=== PATIENT | male | born 1955 | race Caucasian/White ===

== ENCOUNTER 2022-02-06 15:02 | Outpatient (REF) | payer MEDICARE, SELFPAY ==
[2022-02-06 15:58] LABS: MANUAL DIFF FLAG NO
[2022-02-06 16:31] LABS: Basophils Absolute Auto 0.1 X10*3/uL (0.0-0.2); Basophils Percent Auto 0.7 % (0-2); Eosinophils Absolute Auto 0.4 X10*3/uL (0.0-0.4); Eosinophils Percent Auto 4.8 % (0-4); Hematocrit 43.4 % (42.0-52.0); Hemoglobin 14.2 g/dl (14.0-18.0); Imm Gran Abs Auto 0.05 X10*3/uL (0.00-0.03); Imm Gran Pct Auto 0.6 % (0.0-0.4); Lymphocytes Absolute Auto 1.4 X10*3/uL (1.2-4.9); Lymphocytes Percent Auto 15.7 % (20-40); Mean Corpuscular HGB Conc 32.7 g/dl (31.0-36.0); Mean Corpuscular Hemoglobin 29.6 pg (27.0-33.0); Mean Corpuscular Volume 90.4 fL (80.0-98.0); Mean Platelet Volume 10.8 fL (9.4-12.4); Monocytes Absolute Auto 0.9 X10*3/uL (0.1-1.2); Monocytes Percent Auto 9.7 % (2-11); Neutrophils Absolute Auto 6.1 x10*3/uL (2.0-8.3); Neutrophils Percent Auto 68.5 % (45-73); Platelet Count 282 X10*3/uL (160-400); Red Cell Distribution Width 14.1 % (11.0-16.0); White Blood Count 8.9 X10*3/uL (4.8-10.8)
== END 2022-02-06 15:03 | disposition home or self-care (01) ==
LOC: HO.LAB 15:02
PROVIDERS: PCP Internal Medicine; Visit Provider Internal Medicine Pulmonary Disease
DX: J45.909 Unspecified asthma, uncomplicated (principal); G47.33 Obstructive sleep apnea (adult) (pediatric); Z91.09 Other allergy status, other than to drugs and biological substances
CPT/HCPCS: 36415; 82785; 85025; 86003; 99202

== ENCOUNTER 2022-02-14 12:54 | Outpatient (REF) | payer MEDICARE, SELFPAY ==
--- NOTE | 2022-02-14 09:29 | PFT_ITS ---
FLOWS: FEV1 90% of predicted at 2.97 L. FVC 87% of predicted at 3.91 L. FEV1 to FVC ratio of 0.76. No bronchodilator response except in small to medium airways. LUNG VOLUMES: Total lung capacity 91% of predicted at 6.42 L. Residual volume 107% of predicted at 2.60 L. Slow vital capacity 83% of predicted at 3.81 L. Expiratory reserve volume 1% of predicted at 0.02 L. Diffusion capacity is normal. IMPRESSION: No obstructive or restrictive ventilatory defect. No bronchodilator response except in small to medium airways. Decreased expiratory reserve volume suggests extrathoracic restriction, likely secondary to abdominal obesity. Baldev Alvares MD AP/MODL / [id number]
== END 2022-02-14 12:55 | disposition home or self-care (01) ==
LOC: HO.RESP 12:54
PROVIDERS: PCP Internal Medicine; Visit Provider Internal Medicine Pulmonary Disease
DX: R06.00 Dyspnea, unspecified (principal); J45.909 Unspecified asthma, uncomplicated
CPT/HCPCS: 94060; 94727; 94729

== ENCOUNTER → 2022-02-28 14:50 | Outpatient (BNVA) | payer MEDICARE, SELFPAY | PROVIDERS: PCP Internal Medicine; Visit Provider Internal Medicine Pulmonary Disease | DX: J45.909 Unspecified asthma, uncomplicated (principal); Z91.09 Other allergy status, other than to drugs and biological substances | CPT/HCPCS: 99212 ==

== ENCOUNTER → 2022-06-07 15:44 | Outpatient (BNVA) | payer MEDICARE, SELFPAY | PROVIDERS: PCP Internal Medicine; Visit Provider Internal Medicine Pulmonary Disease | DX: Z91.09 Other allergy status, other than to drugs and biological substances (principal); J45.909 Unspecified asthma, uncomplicated | CPT/HCPCS: 99212 ==

== ENCOUNTER 2022-07-13 09:18 | Outpatient (REF) | payer MEDICARE, SELFPAY | END 2022-07-13 09:19 | disposition home or self-care (01) | LOC: HO.MDS 09:18 | PROVIDERS: Visit Provider Internal Medicine Pulmonary Disease | DX: J45.50 Severe persistent asthma, uncomplicated (principal) | CPT/HCPCS: 96372; J0517 ==

== ENCOUNTER 2022-08-10 12:22 | Outpatient (REF) | payer MEDICARE, SELFPAY | END 2022-08-10 12:23 | disposition home or self-care (01) | LOC: HO.MDS 12:22 | PROVIDERS: Visit Provider Internal Medicine Pulmonary Disease | DX: J45.50 Severe persistent asthma, uncomplicated (principal) | CPT/HCPCS: 96372; J0517 ==

== ENCOUNTER 2022-09-07 14:38 | Outpatient (REF) | payer MEDICARE, SELFPAY | END 2022-09-07 14:39 | disposition home or self-care (01) | LOC: HO.MDS 14:38 | PROVIDERS: Visit Provider Internal Medicine Pulmonary Disease | DX: J45.50 Severe persistent asthma, uncomplicated (principal) | CPT/HCPCS: 96372; J0517 ==

== ENCOUNTER → 2022-09-21 11:46 | Outpatient (BNVA) | payer MEDICARE, SELFPAY | PROVIDERS: PCP Internal Medicine; Visit Provider Internal Medicine Pulmonary Disease | DX: J45.909 Unspecified asthma, uncomplicated (principal); G47.33 Obstructive sleep apnea (adult) (pediatric); Z91.09 Other allergy status, other than to drugs and biological substances | CPT/HCPCS: 99212 ==

== ENCOUNTER 2022-11-02 07:51 | Outpatient (REF) | payer MEDICARE, SELFPAY | END 2022-11-02 07:52 | disposition home or self-care (01) | LOC: HO.MDS 07:51 | PROVIDERS: Visit Provider Internal Medicine Pulmonary Disease | DX: J45.50 Severe persistent asthma, uncomplicated (principal) | CPT/HCPCS: 96372 ==

== ENCOUNTER 2022-12-28 07:53 | Outpatient (REF) | payer MEDICARE, SELFPAY | END 2022-12-28 07:54 | disposition home or self-care (01) | LOC: HO.MDS 07:53 | PROVIDERS: Visit Provider Internal Medicine Pulmonary Disease | DX: J45.50 Severe persistent asthma, uncomplicated (principal) | CPT/HCPCS: 96372 ==

== ENCOUNTER → 2023-02-13 15:53 | Outpatient (REF) | payer MEDICARE, SELFPAY | LOC: HO.SL 15:53 | PROVIDERS: Visit Provider Internal Medicine Pulmonary Disease | DX: G47.33 Obstructive sleep apnea (adult) (pediatric) (principal) | CPT/HCPCS: 95806 ==

== ENCOUNTER 2023-02-22 07:49 | Outpatient (REF) | payer MEDICARE, SELFPAY | END 2023-02-22 07:50 | disposition home or self-care (01) | LOC: HO.MDS 07:49 | PROVIDERS: Visit Provider Internal Medicine Pulmonary Disease | DX: J45.50 Severe persistent asthma, uncomplicated (principal) | CPT/HCPCS: 96372 ==

== ENCOUNTER → 2023-02-26 14:13 | Outpatient (BNVA) | payer MEDICARE, SELFPAY | PROVIDERS: Visit Provider Internal Medicine Pulmonary Disease | DX: J45.909 Unspecified asthma, uncomplicated (principal); G47.33 Obstructive sleep apnea (adult) (pediatric); R06.09 Other forms of dyspnea | CPT/HCPCS: 99212 ==

== ENCOUNTER → 2023-03-15 08:03 | Outpatient (REF) | payer MEDICARE, SELFPAY ==
--- NOTE | 2023-03-15 08:06 | CA_ITS ---
Transthoracic Echocardiogram Patient (Last, First, Middle): Shaun Matute, Gender: Male Date of : 1955 Age: 68 Procedure Date: 03/15/2023 Procedure Type: Transthoracic Echocardiogram Location: OP Height: 177.8 cm Weight: 140.62 kg BSA: 2.51 m2 Heart Rate: bpm BP: 117 / 71 mmHg Stick Roller: TO Referring MD: Baldev Alvares MD Symptoms: R06.09 - Other forms of dyspnea Study Quality: Technically Difficult/Contrast ECG Rhythm: Sinus Conclusions: - The left ventricular systolic function is normal. The calculated ejection fraction is 60% by biplane method. - There is mild calcification of the aortic valve. - There is mild mitral annular calcification. - Mild pulmonary hypertension is present. - The inferior vena cava is mildly dilated and collapses greater than 50% with inspiration. Findings Procedure Information Contrast agent, definity, is being given per protocol without apparent complications. Left Ventricle Normal left ventricular cavity size. There is normal left ventricular wall thickness. The left ventricular systolic function is normal. The calculated ejection fraction is 60% by biplane method. There is no evidence of regional wall motion abnormalities. E/E prime ratio is between 8 and 15 consistent with indeterminate filling pressures. Evidence suggests grade I (mild) diastolic dysfunction. Right Ventricle Normal right ventricular cavity size and systolic function. Atria Both atria are normal in size. Aortic Valve There is a normal trileaflet aortic valve. There is mild calcification of the aortic valve. There is no aortic valve stenosis. There is no aortic valve regurgitation. Mitral Valve There is mild mitral annular calcification. There is mild mitral valve regurgitation. There is no mitral valve stenosis. Pulmonic Valve There is trace to mild pulmonic valve regurgitation. Tricuspid Valve Normal tricuspid valve structure. There is trace tricuspid valve regurgitation. Mild pulmonary hypertension is present. Great Vessels The asc aorta is normal in size. Venous The inferior vena cava is mildly dilated and collapses greater than 50% with inspiration. Pericardium/Pleural There is a trivial pericardial effusion. Prior Study Comparison No prior study available for comparison. Measurements 2D Linear Measurements IVSd: 1.02 0.6-0.9/0.6-1.0 cm LVIDd: 5.77 3.9-5.3/4.2-5.9 cm LVIDd Index: 2.30 2.4-3.2/2.2-3.1 cm/m2 LVIDs: 3.64 2.0-3.6 cm LVPWd: 0.99 0.7-1.1 cm LA Diam: 4.10 2.7-3.8/3.0-4.0 cm LAIDs Index: 1.63 1.5-2.3 cm/m2 LV Mass: 289.77 67-162/88-224 g LV Mass Index: 115.45 43-95/49-115 g/m2 LVOT Diam: 2.30 3.0+(-)1.3 cm 2D Systolic Function EF 4C: 60.40 >55% EF 2C: 57.50 >55% EF BiP: 60.10 >55% Mitral Valve MV VTI: 0.44 MV Pk Te: 0.99 MV Mn Te: 0.60 MV Pk Grad: 4.00 MV Mn Grad: 2.00 MV Pk E: 1.08 MV PK A: 1.01 MV Decel Time: 286.00 E/A: 1.10 E'Lateral: 7.18 E'Medial: 7.62 E/E' Med: 14.20 E/E' Lat: 15.00 PHT: 84.00 MVA PHT: 2.62 MVA Continuity: 2.36 Decel [place]: 3.76 Aortic Valve AoV Pk Te: 1.36 AoV Mn Te: 0.98 AoV VTI: 0.35 AoV Pk Grad: 7.00 Aov Mn Grad: 4.00 RAUDEL Cont.VTI: 3.03 LVOT LVOT Pk Te: 1.07 LVOT Mn Te: 0.74 LVOT VTI: 0.25 LVOT Pk Grad: 5.00 LVOT Mn Grad: 2.00 LVOT Diam: 2.30 LVOT Area: 4.15 Diastolic Function MV Pk E: 1.08 MV Pk A: 1.01 E/A: 1.10 E'Medial: 7.62 E/E' Med: 14.20 E' Laterial: 7.18 E/E' Lat: 15.00 Right Ventricle TAPSE (mm): 29.30 TVS' Te: 14.50 Tricuspid Valve TR Pk Te: 2.81 TR Pk Grad: 32.00 RA Press: 8.00 RVSP: 40.00 Great Vessels Aorta Sinus of Valsalva: 3.70 2.0-3.[address] Ridge: 3.01 1.7-3.4 cm Ao Asc: 3.70 2.1-3.4 cm Updated in Other Vendor System with Status of Final Cornelius Xiong MD electronically signed on 03/17/2023 12:33:55 PM with status of Final
== END ==
LOC: HO.CARD 08:03
PROVIDERS: Visit Provider Internal Medicine Pulmonary Disease
DX: R06.09 Other forms of dyspnea (principal)
CPT/HCPCS: 93306; Q9957

== ENCOUNTER → 2023-04-05 10:41 | Outpatient (BNVA) | payer MEDICARE, SELFPAY | PROVIDERS: Visit Provider Internal Medicine Pulmonary Disease | DX: J45.909 Unspecified asthma, uncomplicated (principal); G47.33 Obstructive sleep apnea (adult) (pediatric); R06.09 Other forms of dyspnea; Z91.09 Other allergy status, other than to drugs and biological substances | CPT/HCPCS: 99212 ==

== ENCOUNTER 2023-04-19 07:42 | Outpatient (REF) | payer MEDICARE, SELFPAY | END 2023-04-19 07:43 | disposition home or self-care (01) | LOC: HO.MDS 07:42 | PROVIDERS: Visit Provider Internal Medicine Pulmonary Disease | DX: J45.50 Severe persistent asthma, uncomplicated (principal) | CPT/HCPCS: 96372 ==

== ENCOUNTER 2023-06-14 07:49 | Outpatient (REF) | payer MEDICARE, SELFPAY | END 2023-06-14 07:50 | disposition home or self-care (01) | LOC: HO.MDS 07:49 | PROVIDERS: Visit Provider Internal Medicine Pulmonary Disease | DX: J45.50 Severe persistent asthma, uncomplicated (principal) | CPT/HCPCS: 96372; J0517 ==

== ENCOUNTER 2023-08-09 08:06 | Outpatient (REF) | payer MEDICARE, SELFPAY | END 2023-08-09 08:07 | disposition home or self-care (01) | LOC: HO.MDS 08:06 | PROVIDERS: Visit Provider Internal Medicine Pulmonary Disease | DX: J45.50 Severe persistent asthma, uncomplicated (principal) | CPT/HCPCS: 96372 ==

== ENCOUNTER 2023-10-04 07:45 | Outpatient (REF) | payer MEDICARE, SELFPAY | END 2023-10-04 07:46 | disposition home or self-care (01) | LOC: HO.MDS 07:45 | PROVIDERS: Visit Provider Internal Medicine Pulmonary Disease | DX: J45.50 Severe persistent asthma, uncomplicated (principal) | CPT/HCPCS: 96372 ==

== ENCOUNTER 2023-10-23 14:07 | Outpatient (AMB) | payer MEDICARE, SELFPAY ==
--- NOTE | 2023-10-23 14:09 | MHC.OFFVIS ---
Intake Vital Signs 10/23/23 14:10 Height 5 ft 10 in Weight 328 lb 7.82 oz BMI 47.1 BP 128/67 Blood Pressure Location Rt brachial Position Sitting Pulse Oximetry (%) 97 Oxygen Delivery Method Room Air Intake Visit Reasons: Cough Allergies cholecalciferol (vitamin D3) Allergy (Unknown, Verified 10/23/23 14:11) Unknown HPI Cough HPI Details 68-year-old gentleman, nonsmoker, with underlying history and TONI on CPAP, previously seen at [facility], now followed for? moderate to severe persistent cough variant asthma.??He continues on regimen of Fasenra, Symbicort, albuterol MDI with reasonable baseline control.? Patient did receive his new CPAP machine and has been using it with good control of his underlying sleep apnea symptoms. Patient did try Bumex, however he was not able to tolerated. And at this time his not using any diuretic. He states that his edema has not changed. [facility] Social History (Updated 10/23/23 @ 14:12 by Shruthi Smith [facility]) Patient Tobacco Use Status: Never used Tobacco Review of Systems Const Denies daytime sleepiness, Denies excessive sweating, Denies fatigue, Denies fever(s), Denies lethargy, Denies malaise, Denies night sweats, Denies snoring and Denies weight loss Eyes Denies blurry vision and Denies itchy eyes ENT Denies nasal congestion, Denies post nasal drip, Denies sinus pain, Denies sinus pressure and Denies other ( Thrush) Card Denies chest pain, Reports pedal edema, Denies dyspnea, Denies orthopnea and Denies paroxysmal nocturnal dyspnea Resp Denies cough, Denies hemoptysis, Denies excessive phlegm production, Denies dyspnea, Denies snoring and Denies wheezing GI Denies abdominal pain and Denies heartburn Musc Denies myalgias, Denies arthralgias and Denies joint swelling Skin/Breast Denies rash Neuro Denies memory loss and Denies seizure-like activity Psych Denies abnormal sleep pattern, Denies anxiety and Denies memory loss Endo Denies excessive sweating, Denies fatigue and Denies heat intolerance Torrey/Lymph Denies easy bruising Aller/Immun Denies itchy eyes, Denies seasonal rhinorrhea and Denies wheezing Physical Exam Vital Signs: Last Vital Signs BP 128/67 10/23/23 14:10 Pulse Ox 97 10/23/23 14:10 Oxygen Delivery Method Room Air 10/23/23 14:10 BMI result Body Mass Index 47.1 Const General: no acute distress and alert Nutritional Appearance: obese Orientation/consciousness: Other orientation findings ( oriented) HEENT Head: Yes atraumatic Eyes General: appearance normal, both eyes and all related structures Sclerae: sclerae normal EOM: EOMs intact bilaterally Neck Neck: Yes supple Lymphatic: no lymphadenopathy noted Resp Effort & Inspection: normal respiratory effort and no use of accessory muscles Auscultation: clear to auscultation bilaterally Cardio Rate: regular rate Rhythm: regular rhythm Heart sounds: no gallops, no murmurs and no rubs Skin General skin exam: other ( warm) Extrem General: No clubbing, No cyanosis and Yes edema (3+ bilateral) Assessment & Plan Assessment & Plan (1) Asthma: Code(s): J45.909 - Unspecified asthma, uncomplicated Plan: Well controlled on Fasenra, Symbicort, and albuterol MDI. Continue current regimen. (2) TONI (obstructive sleep apnea): Code(s): G47.33 - Obstructive sleep apnea (adult) (pediatric) Plan: Well controlled on CPAP therapy. Continue CPAP therapy. (3) Environmental allergies: Code(s): Z91.09 - Other allergy status, other than to drugs and biological substances Plan: Well controlled on Fasenra. Continue current regimen. Coding Level of Care Code Est Pt Level 4 (58558) Diagnoses Asthma J45.909 TONI (obstructive sleep apnea) G47.33 Environmental allergies Z91.09
[2023-10-23 14:10] VITALS: BP 128/67; O2SAT 97; BMI 47.1
== END 2023-10-23 14:27 | disposition home or self-care (01) ==
PROVIDERS: Visit Provider Internal Medicine Pulmonary Disease
DX: J45.909 Unspecified asthma, uncomplicated (principal); G47.33 Obstructive sleep apnea (adult) (pediatric); Z91.09 Other allergy status, other than to drugs and biological substances
CPT/HCPCS: 99214

== ENCOUNTER → 2023-10-23 14:07 | Outpatient (BNVA) | payer MEDICARE, SELFPAY | PROVIDERS: Visit Provider Internal Medicine Pulmonary Disease | DX: G47.33 Obstructive sleep apnea (adult) (pediatric) (principal); Z91.09 Other allergy status, other than to drugs and biological substances | CPT/HCPCS: 99212 ==

== ENCOUNTER 2023-11-29 08:04 | Outpatient (REF) | payer MEDICARE, SELFPAY | END 2023-11-29 08:05 | disposition home or self-care (01) | LOC: HO.MDS 08:04 | PROVIDERS: Visit Provider Internal Medicine Pulmonary Disease | DX: J45.50 Severe persistent asthma, uncomplicated (principal) | CPT/HCPCS: 96372 ==

== ENCOUNTER 2024-01-24 08:07 | Outpatient (REF) | payer MEDICARE, SELFPAY ==
[2024-01-24 08:10] VITALS: BP 139/68; PULSE 64; RESP 20; TEMP 36.7; O2SAT 97; BMI 43.0
== END 2024-01-24 08:08 | disposition home or self-care (01) ==
LOC: HO.MDS 08:07
PROVIDERS: Visit Provider Internal Medicine Pulmonary Disease
DX: J45.50 Severe persistent asthma, uncomplicated (principal)
CPT/HCPCS: 96372

== ENCOUNTER 2024-03-30 13:27 | Outpatient (AMB) | payer MEDICARE, SELFPAY ==
--- NOTE | 2024-03-30 13:30 | MHC.OFFVIS ---
Vital Signs 03/30/24 13:31 Height 5 ft 10 in Weight 320 lb 12.361 oz BMI 46.0 BP 126/84 Blood Pressure Location Lt brachial Position Sitting Pulse 60 Pulse Source Pulse Oximeter Pulse Oximetry (%) 95 Oxygen Delivery Method Room Air Intake Visit Reasons: ER Follow Up Allergies cholecalciferol (vitamin D3) Allergy (Unknown, Verified 03/30/24 13:36) Unknown HPI HPI ER Follow Up: Details: Shaun is a pleasant 68-year-old male, nonsmoker, with underlying history and TONI on CPAP, with moderate to severe persistent cough variant asthma.? At baseline he is moderately controlled on Fasenra, Symbicort, albuterol MDI. He is followed by Dr. Alvares and presents today for ER follow up. He reported 5-6 days of worsening dyspnea on exertion and nonproductive cough, son with similar symptoms. EKG without acute findings, CXR unremarkable, Respiratory panel negative, BNP WNL, serial Troponins negative. He was treated with IV fluids, solumedrol, magnesium and duoneb with improvement in symptoms, ultimately discharged on prednisone 40 mg x 4 days and benzonatate. He has two days left of prednisone and continues with significant wheezing as well as nonproductive cough. He denies any changes to baseline dyspnea. He has been monitoring his oxygen saturation, never below 92-93%. He has not been using albuterol neb/MDI. [facility] Social History Patient Tobacco Use Status: Never used Tobacco Review of Systems Const Denies chills, Denies excessive sweating, Denies fever(s), Denies headache(s) and Denies night sweats Eyes Denies dry eyes, Denies irritation and Denies itchy eyes ENT Reports Normal hearing present, Denies headache(s), Denies nasal congestion, Denies nasal discharge, Denies post nasal drip and Denies sore throat Card Denies chest pain, Denies chest pain at rest, Denies chest pain with activity, Denies claudication, Denies leg edema, Reports dyspnea on exertion, Denies orthopnea and Denies paroxysmal nocturnal dyspnea Resp Denies chest congestion, Reports cough, Denies excessive phlegm production, Denies pain on inspiration, Denies pain with cough, Reports dyspnea on exertion, Denies stridor and Reports wheezing Musc Denies myalgias Neuro Reports Normal hearing present and Denies headache(s) Endo Denies excessive sweating Torrey/Lymph Denies lymphadenopathy Aller/Immun Denies itchy eyes, Denies seasonal rhinorrhea and Reports wheezing Physical Exam Vital Signs: Last Vital Signs Pulse 60 03/30/24 13:31 BP 126/84 03/30/24 13:31 Pulse Ox 95 03/30/24 13:31 Oxygen Delivery Method Room Air 03/30/24 13:31 BMI result Body Mass Index 46.0 Const General: cooperative, healthy appearing, comfortable, no acute distress, well developed and alert Nutritional Appearance: obese Orientation/consciousness: patient oriented x3 Limitations: no limitations HEENT Head: Yes normal to inspection, Yes normocephalic and Yes atraumatic Ears: hearing grossly normal bilaterally and external ears normal Eyes General: appearance normal, both eyes and all related structures Eyelids: Yes eyelids normal Sclerae: sclerae normal EOM: EOMs intact bilaterally Neck Neck: Yes normal visual inspection and Yes no lymphadenopathy Lymphatic: no lymphadenopathy noted Chest Chest palpation & inspection: normal inspection of the chest Resp Other: pt with audible wheezes and moderate wheezing throughout, minimally improved after duoneb Effort & Inspection: normal respiratory effort, able to speak in complete sentences, audible wheezes, Actively coughing Quality: wet, no stridor, not tachypneic, no tripod positioning and no use of accessory muscles Auscultation: wheezes Cardio Jugular venous distension: no JVD Rate: regular rate Rhythm: regular rhythm Skin Other: warm, dry General skin exam: no rashes or lesions noted Neuro General: patient oriented x3 Cranial nerves: Yes Normal hearing present Cognition (Neuro): normal cognition Gait exam (Neuro): Normal gait present Extrem General: Yes normal to inspection, Yes capillary refill normal, Yes no clubbing, cyanosis or edema and Yes no pedal edema Psych Appearance: grossly normal and well kempt Speech and movement: Normal speech and movement present and Clear speech present Affect: normal affect Attitude: cooperative Thought process: Normal thought process present Thought content: Normal thought content present Insight: Good insight present (Psych) Judgement: Good judgement present (Psych) Office Procedures Nebulizer Treatment Nebulizer Treatment 24489-[id number]/MDI RX initial, or Nebulizer Subsequent Treatment Office Meds ipratropium 0.5 mg-albuterol 3 mg (2.5 mg base)/3 mL nebulization soln Performing Provider: Lay Augustine NP Performing Location: [facility] Administered by: Myranda Mcclellan LPN on 03/30/24 14:22 Dose Route Admin Location Dispensed Lot Number Expiration Date NDC Director Of Sales And Marketing 3 mL inhalation 3 mL [id number] 09/24/25 29138-111-23 [employer] Assessment & Plan Assessment & Plan (1) Asthma: Code(s): J45.909 - Unspecified asthma, uncomplicated Category: Medical (2) TONI (obstructive sleep apnea): Code(s): G47.33 - Obstructive sleep apnea (adult) (pediatric) Category: Medical (3) Environmental allergies: Code(s): Z91.09 - Other allergy status, other than to drugs and biological substances Category: Medical Plan Will treat bronchitic symptoms with a zpak and prednisone. Encouraged patient to use nebulizer BID and increase symbicort to two inhalations twice daily. Nebulizer given in office for home use and patient has albuterol for nebulizer at home. Patient has close follow up already scheduled with Dr. Alvares. He is aware if symptoms do not improve to call or if worsen to seek emergent care. All questions were answered and patient is in agreement of plan. Orders: Orders AMB Nebulizer Treatment Today J45.909 - Unspecified asthma, uncomplicated, R06.09 - Other forms of dyspnea Medications: New prednisone see taper instructions Take 4 pills daily for 5 days, then go down by 1 pill every 5 days; 20 days 50 tabs 0RF 10 mg PO DIRECTED 50 tabs 0RF azithromycin For 250 mg dose pack: take 500 mg today (day 1), then 250 mg for 4 days (days 2-5) PO 6 tabs 0RF Coding Level of Care Code Est Pt Level 4 (38322) Diagnoses Asthma J45.909 TONI (obstructive sleep apnea) G47.33 Environmental allergies Z91.09 CPT Codes Nebulizer Treatment - Nebulizer Treatment, initial or subsequent: [id number] RX initial, or Nebulizer Subsequent Treatment ([id number])
[2024-03-30 13:31] VITALS: BP 126/84; PULSE 60; O2SAT 95; BMI 46.0
== END 2024-03-30 14:35 | disposition home or self-care (01) ==
PROVIDERS: Visit Provider Nurse Practitioner Family
DX: J45.909 Unspecified asthma, uncomplicated (principal); G47.33 Obstructive sleep apnea (adult) (pediatric); Z91.09 Other allergy status, other than to drugs and biological substances; R06.09 Other forms of dyspnea
CPT/HCPCS: 99214

== ENCOUNTER → 2024-03-30 13:27 | Outpatient (BNVA) | payer MEDICARE, SELFPAY | PROVIDERS: Visit Provider Nurse Practitioner Family | DX: J45.909 Unspecified asthma, uncomplicated (principal); G47.33 Obstructive sleep apnea (adult) (pediatric); Z91.09 Other allergy status, other than to drugs and biological substances | CPT/HCPCS: 94640; 99212 ==

== ENCOUNTER 2024-04-10 09:26 | Outpatient (AMB) | payer MEDICARE, SELFPAY ==
[2024-04-10 09:29] VITALS: BP 122/72; PULSE 68; O2SAT 92; BMI 44.5
--- NOTE | 2024-04-10 09:29 | MHC.OFFVIS ---
Vital Signs 04/10/24 09:29 Height 5 ft 10 in Weight 310 lb BMI 44.5 BP 122/72 Blood Pressure Location Rt brachial Position Sitting Pulse 68 Pulse Source Doppler Pulse Oximetry (%) 92 Oxygen Delivery Method Room Air Intake Visit Reasons: Cough Allergies cholecalciferol (vitamin D3) Allergy (Unknown, Verified 04/10/24 09:32) Unknown HPI HPI Cough: Details: 69-year-old gentleman, nonsmoker, with underlying history and TONI on CPAP, previously seen at [facility], now followed for? moderate to severe persistent cough variant asthma.??He continues on regimen of Fasenra, Symbicort, albuterol MDI with reasonable baseline control.? He also continues to use CPAP to control his underlying sleep apnea. Patient has been having an acute exacerbation for the last 2 weeks treated with a course of prednisone, now with significant improvement, though not completely at baseline. [facility] Social History Patient Tobacco Use Status: Never used Tobacco Review of Systems Const Denies daytime sleepiness, Denies excessive sweating, Denies fatigue, Denies fever(s), Denies lethargy, Denies malaise, Denies night sweats, Denies snoring and Denies weight loss Eyes Denies blurry vision and Denies itchy eyes ENT Denies nasal congestion, Denies post nasal drip, Denies sinus pain, Denies sinus pressure and Denies other ( Thrush) Card Denies chest pain, Denies pedal edema, Denies dyspnea, Denies orthopnea and Denies paroxysmal nocturnal dyspnea Resp Reports cough, Denies hemoptysis, Denies excessive phlegm production, Denies dyspnea, Denies snoring and Denies wheezing GI Denies abdominal pain and Denies heartburn Musc Denies myalgias, Denies arthralgias and Denies joint swelling Skin/Breast Denies rash Neuro Denies memory loss and Denies seizure-like activity Psych Denies abnormal sleep pattern, Denies anxiety and Denies memory loss Endo Denies excessive sweating, Denies fatigue and Denies heat intolerance Torrey/Lymph Denies easy bruising Aller/Immun Denies itchy eyes, Denies seasonal rhinorrhea and Denies wheezing Physical Exam Vital Signs: Last Vital Signs Pulse 68 04/10/24 09:29 BP 122/72 04/10/24 09:29 Pulse Ox 92 04/10/24 09:29 Oxygen Delivery Method Room Air 04/10/24 09:29 BMI result Body Mass Index 44.5 Const General: no acute distress and alert Nutritional Appearance: obese Orientation/consciousness: Other orientation findings ( oriented) HEENT Head: Yes atraumatic Eyes General: appearance normal, both eyes and all related structures Sclerae: sclerae normal EOM: EOMs intact bilaterally Neck Neck: Yes supple Lymphatic: no lymphadenopathy noted Resp Effort & Inspection: normal respiratory effort and no use of accessory muscles Auscultation: clear to auscultation bilaterally Cardio Rate: regular rate Rhythm: regular rhythm Heart sounds: no gallops, no murmurs and no rubs Skin General skin exam: other ( warm) Extrem General: No clubbing, No cyanosis and No edema Assessment & Plan Assessment & Plan (1) Asthma: Code(s): J45.909 - Unspecified asthma, uncomplicated Category: Medical Plan: Baseline controlled on Symbicort, albuterol MDI. Continue current regimen. Now with ongoing exacerbation that is improving current prednisone taper. Finish prednisone taper. Continue Fasenra. (2) Environmental allergies: Code(s): Z91.09 - Other allergy status, other than to drugs and biological substances Category: Medical Plan: Well controlled on Fasenra and Singulair. Continue current regimen. (3) TONI (obstructive sleep apnea): Code(s): G47.33 - Obstructive sleep apnea (adult) (pediatric) Category: Medical Plan: Well controlled on current CPAP therapy. Continue CPAP therapy. Medications: Refilled Symbicort 160-4.5 mcg/actuation (budesonide-formoterol) 2 puffs inhalation BID 1 ea 6RF 30 days NS Coding Level of Care Code Est Pt Level 4 (47862) Diagnoses Asthma J45.909 Environmental allergies Z91.09 TONI (obstructive sleep apnea) G47.33
== END 2024-04-10 09:52 | disposition home or self-care (01) ==
PROVIDERS: Visit Provider Internal Medicine Pulmonary Disease
DX: J45.909 Unspecified asthma, uncomplicated (principal); Z91.09 Other allergy status, other than to drugs and biological substances; G47.33 Obstructive sleep apnea (adult) (pediatric)
CPT/HCPCS: 99214

== ENCOUNTER → 2024-04-10 09:26 | Outpatient (BNVA) | payer MEDICARE, SELFPAY | PROVIDERS: Visit Provider Internal Medicine Pulmonary Disease | DX: J45.909 Unspecified asthma, uncomplicated (principal); G47.33 Obstructive sleep apnea (adult) (pediatric); Z91.09 Other allergy status, other than to drugs and biological substances | CPT/HCPCS: 99212 ==

== ENCOUNTER 2024-09-25 09:10 | Outpatient (AMB) | payer MEDICARE, SELFPAY ==
[2024-09-25 09:15] VITALS: BP 118/64; PULSE 64; O2SAT 95; BMI 44.2
--- NOTE | 2024-09-25 09:15 | MHC.OFFVIS ---
Vital Signs 09/25/24 09:15 Height 5 ft 10 in Weight 308 lb BMI 44.2 BP 118/64 Blood Pressure Location Lt brachial Position Sitting Pulse 64 Pulse Source Doppler Pulse Oximetry (%) 95 Oxygen Delivery Method Room Air Intake Visit Reasons: Cough Allergies cholecalciferol (vitamin D3) Allergy (Unknown, Verified 09/25/24 09:18) Unknown HPI HPI Cough: Details: 69-year-old gentleman, nonsmoker, with underlying history and TONI on CPAP, previously seen at [facility], now followed for? moderate to severe persistent cough variant asthma.??He continues on regimen of Fasenra, Symbicort, Singulair, albuterol MDI with reasonable baseline control.? He also continues to use CPAP to control his underlying sleep apnea. He denies recent exacerbations. [facility] Social History Patient Tobacco Use Status: Never used Tobacco Review of Systems Const Denies daytime sleepiness, Denies excessive sweating, Denies fatigue, Denies fever(s), Denies lethargy, Denies malaise, Denies night sweats, Denies snoring and Denies weight loss Eyes Denies blurry vision and Denies itchy eyes ENT Denies nasal congestion, Denies post nasal drip, Denies sinus pain, Denies sinus pressure and Denies other ( Thrush) Card Denies chest pain, Denies pedal edema, Denies dyspnea, Reports dyspnea on exertion (Climbing stairs), Denies orthopnea and Denies paroxysmal nocturnal dyspnea Resp Denies cough, Denies hemoptysis, Denies excessive phlegm production, Denies dyspnea, Reports dyspnea on exertion (Climbing stairs), Denies snoring and Denies wheezing GI Denies abdominal pain and Denies heartburn Musc Denies myalgias, Denies arthralgias and Denies joint swelling Skin/Breast Denies rash Neuro Denies memory loss and Denies seizure-like activity Psych Denies abnormal sleep pattern, Denies anxiety and Denies memory loss Endo Denies excessive sweating, Denies fatigue and Denies heat intolerance Torrey/Lymph Denies easy bruising Aller/Immun Denies itchy eyes, Denies seasonal rhinorrhea and Denies wheezing Physical Exam Vital Signs: Last Vital Signs Pulse 64 09/25/24 09:15 BP 118/64 09/25/24 09:15 Pulse Ox 95 09/25/24 09:15 Oxygen Delivery Method Room Air 09/25/24 09:15 BMI result Body Mass Index 44.2 Const General: no acute distress and alert Nutritional Appearance: obese Orientation/consciousness: Other orientation findings ( oriented) HEENT Head: Yes atraumatic Eyes General: appearance normal, both eyes and all related structures Sclerae: sclerae normal EOM: EOMs intact bilaterally Neck Neck: Yes supple Lymphatic: no lymphadenopathy noted Resp Effort & Inspection: normal respiratory effort and no use of accessory muscles Auscultation: clear to auscultation bilaterally Cardio Rate: regular rate Rhythm: regular rhythm Heart sounds: no gallops, no murmurs and no rubs Skin General skin exam: other ( warm) Extrem General: No clubbing, No cyanosis and No edema Assessment & Plan Assessment & Plan (1) Severe persistent asthma: Code(s): J45.50 - Severe persistent asthma, uncomplicated Category: Medical Plan: Controlled on current regimen of Fasenra, Symbicort, albuterol MDI, and albuterol nebs. Continue current regimen. (2) Environmental allergies: Code(s): Z91.09 - Other allergy status, other than to drugs and biological substances Category: Medical Plan: Controlled on Fasenra and Singulair. Continue current regimen. (3) TONI (obstructive sleep apnea): Code(s): G47.33 - Obstructive sleep apnea (adult) (pediatric) Category: Medical Plan: Well controlled on current CPAP therapy. Continue CPAP therapy. Medications: Refilled Symbicort 160-4.5 mcg/actuation (budesonide-formoterol) 2 puffs inhalation BID 30 days 1 ea 6RF NS Ventolin HFA 90 mcg/actuation (albuterol sulfate) 2 puffs inhalation Q4-6H 30 days PRN 1 ea 6RF shortness of breath or wheezing NS Coding Level of Care Code Est Pt Level 4 (38223) Diagnoses Severe persistent asthma J45.50 Environmental allergies Z91.09 TONI (obstructive sleep apnea) G47.33
== END 2024-09-25 09:34 | disposition home or self-care (01) ==
LOC: HO.HPS 09:10
PROVIDERS: Visit Provider Internal Medicine Pulmonary Disease
DX: J45.50 Severe persistent asthma, uncomplicated (principal); Z91.09 Other allergy status, other than to drugs and biological substances; G47.33 Obstructive sleep apnea (adult) (pediatric)
CPT/HCPCS: 99214

== ENCOUNTER → 2024-09-25 09:10 | Outpatient (BNVA) | payer MEDICARE, SELFPAY | PROVIDERS: Visit Provider Internal Medicine Pulmonary Disease | DX: J45.50 Severe persistent asthma, uncomplicated (principal); G47.33 Obstructive sleep apnea (adult) (pediatric); Z91.09 Other allergy status, other than to drugs and biological substances | CPT/HCPCS: 99212 ==

== ENCOUNTER 2025-01-29 09:06 | Outpatient (AMB) | payer MEDICARE, SELFPAY ==
[2025-01-29 09:17] VITALS: BP 128/60; PULSE 77; O2SAT 95; BMI 45.1
--- NOTE | 2025-01-29 09:17 | MHC.OFFVIS ---
Vital Signs 01/29/25 09:17 Height 5 ft 10 in Weight 314 lb 2.539 oz BMI 45.1 BP 128/60 Blood Pressure Location Rt brachial Position Sitting Pulse 77 Pulse Source Doppler Pulse Oximetry (%) 95 Oxygen Delivery Method Room Air Intake Visit Reasons: Cough Allergies cholecalciferol (vitamin D3) Allergy (Unknown, Verified 01/29/25 09:22) Unknown HPI HPI Cough: Details: 70-year-old gentleman, nonsmoker,followed for? moderate to severe persistent cough variant asthma, environmental allergies, and TONI on CPAP.??He continues on regimen of Fasenra, Symbicort, Singulair, albuterol MDI with reasonable baseline control.? He also continues to use CPAP to control his underlying sleep apnea. He denies recent exacerbations. [facility] Social History Patient Tobacco Use Status: Never used Tobacco Review of Systems Const Denies daytime sleepiness, Denies excessive sweating, Denies fatigue, Denies fever(s), Denies lethargy, Denies malaise, Denies night sweats, Denies snoring and Denies weight loss Eyes Denies blurry vision and Denies itchy eyes ENT Denies nasal congestion, Denies post nasal drip, Denies sinus pain, Denies sinus pressure and Denies other ( Thrush) Card Denies chest pain, Denies pedal edema, Denies dyspnea, Denies orthopnea and Denies paroxysmal nocturnal dyspnea Resp Denies cough, Denies hemoptysis, Denies excessive phlegm production, Denies dyspnea, Denies snoring and Denies wheezing GI Denies abdominal pain and Denies heartburn Musc Denies myalgias, Denies arthralgias and Denies joint swelling Skin/Breast Denies rash Neuro Denies memory loss and Denies seizure-like activity Psych Denies abnormal sleep pattern, Denies anxiety and Denies memory loss Endo Denies excessive sweating, Denies fatigue and Denies heat intolerance Torrey/Lymph Denies easy bruising Aller/Immun Denies itchy eyes, Denies seasonal rhinorrhea and Denies wheezing Physical Exam Vital Signs: Last Vital Signs Pulse 77 01/29/25 09:17 BP 128/60 01/29/25 09:17 Pulse Ox 95 01/29/25 09:17 Oxygen Delivery Method Room Air 01/29/25 09:17 BMI result Body Mass Index 45.1 Const General: no acute distress and alert Nutritional Appearance: obese Orientation/consciousness: Other orientation findings ( oriented) HEENT Head: Yes atraumatic Eyes General: appearance normal, both eyes and all related structures Sclerae: sclerae normal EOM: EOMs intact bilaterally Neck Neck: Yes supple Lymphatic: no lymphadenopathy noted Resp Effort & Inspection: normal respiratory effort and no use of accessory muscles Auscultation: clear to auscultation bilaterally Cardio Rate: regular rate Rhythm: regular rhythm Heart sounds: no gallops, no murmurs and no rubs Skin General skin exam: other ( warm) Extrem General: No clubbing, No cyanosis and No edema Assessment & Plan Assessment & Plan (1) Severe persistent asthma: Code(s): J45.50 - Severe persistent asthma, uncomplicated Category: Medical Plan: Well controlled on current regimen of Fasenra, Symbicort, and albuterol MDI/nebs. Continue current regimen. (2) Environmental allergies: Code(s): Z91.09 - Other allergy status, other than to drugs and biological substances Category: Medical Plan: Well controlled on Fasenra. Continue current regimen. (3) TONI (obstructive sleep apnea): Code(s): G47.33 - Obstructive sleep apnea (adult) (pediatric) Category: Medical Plan: Well controlled on current CPAP therapy. Continue CPAP therapy. Coding Level of Care Code Est Pt Level 4 (72693) Complex EM visit Add On G2211 Diagnoses Severe persistent asthma J45.50 Environmental allergies Z91.09 TONI (obstructive sleep apnea) G47.33
--- OUTSIDE RECORDS SUMMARY | 2025-01-29 09:47 | XMS_ITS | Continuity of Care Document ---
Author Organization [facility] Adult Address [address] [place] [address]- Care Team Providers Care Surveillance Inspector Name Role Phone Adeline Harper Primary Care Uli gomez Encounter [facility] Date(s): 12/15/24 - 01/14/[address] [address]- Encounter Type: Triage Allergies, Adverse Reactions, Alerts No Known Allergies Immunizations Given and Recorded Vaccine Date Status Refusal Reason influenza virus vaccine, inactivated 1 12/09/24 Gi sho influenza virus vaccine, inactivated 2 11/06/24 Gi sho influenza virus vaccine, inactivated 3 10/31/23 Gi sho influenza virus vaccine, inactivated 4 10/16/22 Gi sho influenza virus vaccine, inactivated 09/04/21 Messi rded influenza virus vaccine, inactivated 09/16/20 Messi rded influenza virus vaccine, inactivated 10/01/18 Give n influenza virus vaccine, inactivated 5 09/12/17 Gi sho influenza virus vaccine, inactivated 12/18/13 Give n influenza virus vaccine, inactivated 6 08/06/12 Gi sho SARS-CoV-2(COVID-19)mRNA-LNP vac([id number]) 11/16/24 Recorded SARS-CoV-2(COVID-19)mRNA-LNP vac([id number]) 09/24/23 Recorded SARS-CoV-2 mRNA (wbajsmr-dbya-drsdb) vax 06/09/22 Recorded SARS-CoV-2 (COVID-19) mRNA BNT-162b2 vac 09/29/21 Recorded SARS-CoV-2 (COVID-19) mRNA BNT-162b2 vac 01/18/21 Recorded SARS-CoV-2 (COVID-19) mRNA BNT-162b2 vac 12/28/20 Recorded Influenza Virus Vaccine (oldterm) 09/11/20 Recorde d Influenza Virus Vaccine (oldterm) 10/07/19 Recorde d pneumococcal 13-valent vaccine 10/07/19 Recorded Influenza Inactive (IM) (oldterm) 09/22/09 Given tetanus/diphtheria/pertussis, acel(Tdap) 05/26/08 Given 1Result Comment: [facility]# [id number] 2Result Comment: [facility]# [id number] 3Result Comment: Flu High [facility] [id number] 4Result Comment: [id number] 5Result Comment: [facility]#[id number] 6Admin Note: VIS:06/19/11 Problem List Condition Confirmation Course Effective Dates Status H ealth Status Informant ASTHMA, Moderate persistent Confirmed Active Chronic kidney disease, stage 3 Confirmed 08/06/12 Active CAD (coronary artery disease) 1 Confirmed 09/11/21 Active Diabetes Confirmed Active Hyperlipidemia Confirmed Active Hypertension Confirmed 06/29/21 Active Major depression in full remission Confirmed Active Obstructive sleep apnea syndrome, CPAP 8 cm Confirmed 1999 Active Congenitally solitary left kidney Confirmed Active Rosacea Confirmed Active Severe obesity Confirmed Active Urinary incontinence Confirmed Active 1Inferior hypokinesis and paradoxical decrease perfusion with rest in the inferior wall on regadenoson perfusion Social History Social History Type Response Smoking Status Never smoker entered on: 04/12/15 Sex Sex Representation Male (finding) Patient Care team information Care Team Personnel Name: Liz LEO, Adeline Thomason Position: [facility] PCO Associate Professional Member Role: PCP Address: [address] [place] [address]. [address] [place] [address]- Telecom: Care Team Related Persons Name: VANESA BRAVO Insurance Providers Guarantor name: MANDEEP BRAVO Health Plan Information #: 1 Payer: MEDICARE PART B OUTPT Member Number: NA Policy Number: NA Group Number: NA Health Plan Information #: 2 Payer: MEDEX Member Number: NA Policy Number: NA Group Number: NA
--- OUTSIDE RECORDS SUMMARY | 2025-01-29 09:48 | XMS_ITS | Continuity of Care Document ---
Author Organization [facility] Adult Address [address] [place] [address]- Care Team Providers Care Commercial Underwriter Name Role Phone Adeline Harper Primary Care P jason Encounter [facility] Date(s): 12/09/24 - 01/08/25 [facility] Adult [address] [place] [address]- Attending Physician: Luis Barry Encounter Type: Triage Allergies, Adverse Reactions, Alerts [...] vaccine, inactivated 6 08/06/12 Gi sho SARS-CoV-2(COVID-19)mRNA-LNP vac([id number]) 11/16/24 Recorded SARS-CoV-2(COVID-19)mRNA-LNP vac([id number]) 09/24/23 Recorded SARS-CoV-2 mRNA (hfejblc-vsgr-rgcyw) vax 06/09/22 Recorded SARS-CoV-2 (COVID-19) mRNA BNT-162b2 vac 09/29/21 Recorded SARS-CoV-2 (COVID-19) mRNA BNT-162b2 vac 01/18/21 Recorded SARS-CoV-2 (COVID-19) mRNA BNT-162b2 vac 12/28/20 Recorded Influenza Virus Vaccine (oldterm) 09/11/20 Recorde d Influenza Virus Vaccine (oldterm) 10/07/19 Recorde d pneumococcal 13-valent vaccine 10/07/19 Recorded Influenza Inactive (IM) (oldterm) 09/22/09 Given tetanus/diphtheria/pertussis, acel(Tdap) 05/26/08 Given 1Result Comment: [facility]# [id number] 2Result Comment: [facility]# [id number] 3Result Comment: Flu High [facility] [id number] 4Result Comment: [id number] 5Result Comment: [facility]#[id number] 6Admin Note: VIS:06/19/11 Problem List Condition Confirmation [...] in the inferior wall on regadenoson perfusion Procedures Procedure Date Related Diagnosis Body Site Status Colonoscopy 1 09/03/24 Completed Colonoscopy 2 05/30/16 Completed 1Repeat 5 years (2028) 2TA, 5 year repeat Social History Social History Type Response Smoking Status Never smoker entered on: 04/12/15 Sex Sex Representation Male (finding) EKG study * Event Display: EKG Authored Date: Laboratory * Event Display: Non-[facility] Pathology Lab Results Authored Date: * Event Display: Non BH Lab Results Authored Date: * Event Display: Non BH Lab Results Authored Date: * Event Display: Non BH Lab Results Authored Date: * Event Display: Non BH Lab Results Authored Date: Radiology * Event Display: CT Scan Abdomen, Non- BH Authored Date: * Event Display: CT Scan Abdomen, Non- BH Authored Date: Patient Care team information Care Team Personnel Name: Adeline Harper Position: [facility] PCO Associate Professional Member Role: PCP Address: [address] [place] [address]. [address] [place], [place] [address] Telecom: Care Team Related Persons Name: VANESA BRAVO Insurance Providers Guarantor name: MANDEEP BRAVO Health Plan Information #: 1 Payer: MEDICARE PART B OUTPT Member Number: NA Policy Number: NA Group Number: NA Health Plan Information #: 2 Payer: MEDEX Member Number: NA Policy Number: NA Group Number: NA
--- OUTSIDE RECORDS SUMMARY | 2025-01-29 09:48 | XMS_ITS | Encounter Summary ---
Author Organization [facility] Address [address] [place] [address] Care Team Providers Care Repair Operator Name Role Phone Unavailable Primary Care Provider Unavailabl e Encounter Details Date Type Department Care Team (Latest Contact Info) Description 12/21/2020 Lab Requisition [facility] COVID Drive Through [address] [place] [address] [address] [place] [address] Erwin Sarmiento MD [address] [place] [address] Encounter for laboratory testing for COVID-19 virus Social History Tobacco Use Types Packs/Day Years Used Date Smoking Tobacco: Never Assessed Sex and Gender Information Value Date Recorded Sex Assigned at Not on file Gender Identity Not on file Sexual Orientation Not on file documented as of this encounter Plan of Treatment Not on file documented as of this encounter Procedures Procedure Name Priority Date/Time Associated Diagnosis Comments COVID-19 (SARS-COV-2) - [facility] Routine 12/21/2020 2:54 PM EST Encounter for laboratory testing for COVID-19 virus [ICD-10-CM] documented in this encounter Results * COVID-19 (SARS-COV-2) ([facility]) (12/21/2020 2:54 PM EST) COVID-19 RT-PCR NOT-DETEC MARY Not-Detec mary 12/22/2020 3:06 PM EST [facility] - [place] Comment:Interpretation: The viral RNA was not detected, making the COVID-19 diagnosis less likely. Clinical correlation is highly recommended.Final report signed by Danis Pacheco, Ph.D., Laboratory DirectorTests performed at [facility], [employer] Microbiology Nasopharyngeal swab / Unknown 12/21/2020 2:54 PM EST 12/21/2020 2:54 PM EST Narrative JACQUELINE GILMAN - 12/22/2020 3:06 PM EST Performed by [facility], [employer] [address] [place] [address], CLIA# [id number] and [place] License# [id number] Erwin Sarmiento MD MICROBIOLOGY - GENER AL ORDERABLES Performing Organization Address City/State/[facility] Co de Phone Number JACQUELINE GILMAN documented in this encounter Visit Diagnoses Diagnosis Encounter for laboratory testing for COVID-19 virus documented in this encounter
--- OUTSIDE RECORDS SUMMARY | 2025-01-29 09:48 | XMS_ITS | Clinical Summary ---
Author Organization [facility] Address [address] [place] [address] Care Team Providers Care Orchard Hand Name Role Phone Unavailable Primary Care Provider Unavailabl e Social History Tobacco Use Types Packs/Day Years Used Date Smoking Tobacco: Never Assessed Sex and Gender Information Value Date Recorded Sex Assigned at Not on file Gender Identity Not on file Sexual Orientation Not on file Plan of Treatment Health Maintenance Due Date Last Done Comments Hepatitis C Virus Screening 1955 DTaP/Tdap/Td Vaccines (1 - Tdap) 1972 Pneumococcal Vaccines 50+ (1 of 1 - PCV) 2003 Zoster (Shingles) Vaccine (1 of 2) 2003 COVID-19 Vaccine ( - 2023-2 5 season) 2024 RSV Vaccine 60 years and old er and Patients (1 - 1-dose 75+ series) 2028 Hepatitis B Vaccines Aged Out No long er eligible based on patient's age to complete this topic
--- OUTSIDE RECORDS SUMMARY | 2025-01-29 09:48 | XMS_ITS | Clinical Summary ---
Author Organization [facility] Address [address] [place] [address] Phone Care Team Providers Care Radar Engineer Name Role Phone Atilio Ulloa MD Primary Care Provider [phone] Allergies Active Allergy Reactions Criticality Noted Date Comments Cholecalciferol 05/31/2010 Medications amLODIPine-kassandra zepril (LOTREL 5-10) 5-10 MG per capsule Take 1 capsule by mouth 1 (one) time each day Active aspirin (ST BALJIT) 81 MG EC tablet Take 81 mg by mouth 1 (one) time each day Active atorvastatin (LIPITOR) 40 MG tablet Take 40 mg by mouth 1 (one) time each day Active Multiple Vitamins-Minera ls (CENTRUM SILVER PO) Take by mouth 1 (one) time each day Active fluticasone (FLONASE) 50 MCG/ACT nasal spray Administer 1 spray into each nostril 1 (one) time each day Active FLUoxetine (PROzac) 20 MG capsule Take 20 mg by mouth 1 (one) time each day Active metoprolol succinate XL (TOPROL XL) 25 MG 24 hr tablet Take 25 mg by mouth 1 (one) time each day Do not crush or chew. Active montelukast (SINGULAIR) 10 MG tablet Take 10 mg by mouth every night Active Albuterol Sulfate 108 (90 Base) MCG/ACT aerosol powder Take by nebulization every 6 (six) hours if needed for wheezing Active budesonide-form oterol (SYMBICORT) 160-4.5 MCG/ACT inhaler Inhale 2 puffs 2 (two) times a day Rinse mouth with water after use to reduce aftertaste and incidence of candidiasis. Do not swallow. 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/14/2023 Hypertensive chronic kidney disease stage 3 02/24 Stage 3 chronic kidney disease 03/13/2023 Obstructive sleep apnea syndrome 07/25/2018 Resolved Problems Problem Noted Date Diagnosed Date Resolved Date Allergic rhinitis 08/06/2018 03/13/2023 Uncomplicated moderate persistent asthma 07/25/2018 03/13/2023 Asthma 07/18/2017 03/13/2023 Anxiety 05/31/2010 03/13/2023 Hyperlipidemia 05/31/2010 03/13/2023 Family History Medical History Relation Comments Diabetes Child Cancer Mother Lung cancer Diabetes Sister Relation Status Comments Child Alive Father Mother Sister Social History Tobacco Use Types Packs/Day Years Used Date Smoking Tobacco: Never Smokeless Tobacco: Never Tobacco Cessation:Counseling Given: No Alcohol Use Standard Drinks/Week Comments Yes 0 (1 standard drink = 0.6 oz pur e alcohol) Socially Sex and Gender Information Value Date Recorded Sex Assigned at Not on file Legal Sex Male 1:49 PM EDT Gender Identity Not on file Sexual Orientation Not on file Last Filed Vital Signs Vital Sign Reading Time Taken Comments Blood Pressure 130/72 09/19/2023 2:59 PM EDT Pulse 67 09/19/2023 2:59 PM EDT Temperature - - Respiratory Rate - - Oxygen Saturation - - Inhaled Oxygen Concentration - - Weight 136 kg (300 lb) 09/19/2023 2:59 PM EDT Height 177.8 cm (5' 10 ) 03/14/2023 2:59 PM EDT Body Mass Index 43.05 03/14/2023 2:59 PM EDT Plan of Treatment Health Maintenance Due Date Last Done Comments Colorectal Cancer Screening: Annual FOBT 2002 Colorectal Cancer Screening: Colonoscopy 2002 Colorectal Cancer Screening: Sigmoidoscopy 2002 Pneumococcal Vaccine: 65+ Years (2 of 2 - PPSV23 or PCV20) 12/02/2019 10/07/2019 Influenza Vaccine (#1) 2024 0, 10/07/2019, 09/22/2009 Hepatitis B Vaccine Aged Out No longe r eligible based on patient's age to complete this topic Insurance MEDICARE [facility] MEDICARE [facility] Care Teams Radar Engineer Relationship Specialty Start Date End Date Atilio Ulloa MD [address] [place] PCP - General Internal Medicine 03/14/23
--- OUTSIDE RECORDS SUMMARY | 2025-01-29 09:48 | XMS_ITS | Clinical Summary ---
Author Organization [email or web address] it Address [address] [place] [address] Care Team Providers Care Exploration Geologist Name Role Phone Atilio Ulloa MD Primary Care Provider [phone] Medical History Medical History Date Comments Allergic rhinitis 08/06/2018 DX:Allergic rh initis Social History Tobacco Use Types Packs/Day Years Used Date Smoking Tobacco: Never Smokeless Tobacco: Never Alcohol Use Standard Drinks/Week Comments Yes 0 (1 standard drink = 0.6 oz pur e alcohol) Sex and Gender Information Value Date Recorded Sex Assigned at Not on file Legal Sex Male 9:37 AM EST Gender Identity Not on file Sexual Orientation Not on file Obstetrics History Plan of Treatment Health Maintenance Due Date Last Done Comments DTaP,Tdap,and Td Vaccines (1 - Tdap) 1972 Pneumococcal Vaccine: 50+ Ye ars (1 of 2 - PCV) 1972 Zoster Vaccines (1 of 2) 2003 RSV Immunization Patients 60 + Years Old (1 - Risk 60-74 years 1-dose series) 2013 Abdominal Aortic Aneurysm (A AA) Screen 06/23/2024 Cholesterol Screening (Lipid Panel) 06/23/2024 Colorectal Cancer Screening: Colonoscopy 06/23/2024 Depression Screening 06/23/2024 Falls Risk Assessment 06/23/2024 Hepatitis C Screening 06/23/2024 Social Influencers of Health Screening 06/23/2024 COVID-19 Vaccine (1 - 2023-2 5 season) 2024 Influenza Vaccine (#1) 2024 HIB Vaccines Aged Out No longer eligi ble based on patient's age to complete this topic HPV Vaccines Aged Out No longer eligi ble based on patient's age to complete this topic Hepatitis A Vaccines Aged Out No long er eligible based on patient's age to complete this topic Hepatitis B Vaccines Aged Out No long er eligible based on patient's age to complete this topic IPV Vaccines Aged Out No longer eligi ble based on patient's age to complete this topic MMR Vaccines Aged Out No longer eligi ble based on patient's age to complete this topic Meningococcal ACWY Vaccine Aged Out N o longer eligible based on patient's age to complete this topic Meningococcal B Vacine Aged Out No lo nger eligible based on patient's age to complete this topic RSV Immunization Patients Un jay jay 20 months Aged Out No longer eligible b ased on patient's age to complete this topic Varicella Vaccines Aged Out No longer eligible based on patient's age to complete this topic Care Teams Exploration Geologist Relationship Specialty Start Date End Date Atilio Ulloa MD [address] [place] [phone] PCP - General Internal Medicine 07/23/18
--- OUTSIDE RECORDS SUMMARY | 2025-01-29 09:48 | XMS_ITS | Encounter Summary ---
Author Organization [facility] Address [address] [place] [address] Care Team Providers Care Misdraw Hand Name Role Phone Unavailable Primary Care Provider Unavailabl e Encounter Details Date Type Department Care Team (Latest Contact Info) Description 11/15/2020 Lab Requisition [facility] COVID Drive Through [address] [place] [address] [address] [place] [address] Atilio Mascorro PA-C [address] [place] [id number] Encounter for laboratory testing for COVID-19 virus [...] Date/Time Associated Diagnosis Comments COVID-19 (SARS-COV-2) - [facility] Routine 11/15/2020 5:44 PM EST Encounter for laboratory testing for COVID-19 virus [ICD-10-CM] documented in this encounter Results * COVID-19 (SARS-COV-2) ([facility]) (11/15/2020 5:44 PM EST) COVID-19 RT-PCR NOT-DETEC MARY Not-Detec mary 11/19/2020 3:[address] [facility] [place] Comment:Interpretation: The viral RNA was not detected, making the COVID-19 diagnosis less likely. Clinical correlation is highly recommended.Final report signed by Omaira Ga, Ph.D., Laboratory DirectorTests performed at [facility] Nasopharyngeal swab / Unknown 11/15/2020 5:44 PM EST 11/15/2020 5:44 PM EST Narrative JACQUELINE GILMAN - 11/19/2020 3:41 PM EST Performed by [facility], [employer] [address] [place] [address], CLIA# [id number] and [place] License# [id number] Atilio Mascorro PA-C MICROBIOLOGY - NERAL ORDERABLES JACQUELINE GILMAN documented in this encounter Visit Diagnoses Diagnosis Encounter for laboratory testing for COVID-19 virus documented in this encounter
--- OUTSIDE RECORDS SUMMARY | 2025-01-29 09:48 | XMS_ITS | Encounter Summary ---
Author Organization [facility] Address [address] [place] [address] Care Team Providers Care Commodity Specialist Name Role Phone Unavailable Primary Care Provider Unavailabl e Encounter Details Date Type Department Care Team (Latest Contact Info) Description 10/18/2020 Lab Requisition [facility] COVID Drive Through [address] [place] [address] [address] [place] [address] Atilio Mascorro PA-C [address] [place] [address] [phone] Encounter for laboratory testing for COVID-19 virus [...] Procedure Name Priority Date/Time Associated Diagnosis Comments (REPORT) SARS COV-2 RNA (COVID-19), QUAL Routine 10/18/2020 5:44 PM EST Encounter for laboratory testing for COVID-19 virus [ICD-10-CM] documented in this encounter Results * SARS CoV-2 RNA (COVID-19), Qual (10/18/2020 5:44 PM EST) Pathologist [facility] SARS CoV 2 RNA, Qual NOT DETECTED NOT DETECTED 10/22/2020 5:00 PM EST [facility] Comment: A Not Detected (negative) test result for this test means that SARS-CoV-2 RNA was not present in the specimen above the limit of detection. A negative result does not rule out the possibility of COVID-19 and should not be used as the sole basis for treatment or patient management decisions. If COVID-19 is still suspected, based on exposure history together with other clinical findings, re-testing should be considered in consultation with public health authorities. Laboratory test results should always be considered in the context of clinical observations and epidemiological data in making a final diagnosis and patient management decisions. REFERENCE RANGE: ??NOT DETECTED This patient specimen was tested using an FDA EUA pooling method. Negative results from pooled testing should not be treated as definitive. ??If the patient's clinical signs and symptoms are inconsistent with a negative result or results are necessary for patient management, then the patient should be considered for individual testing. Specimens with low viral loads may not be detected in sample pools due to the decreased sensitivity of pooled testing. Please review the Fact Sheets and FDA authorized labeling available for health care providers and patients using the following websites: https://www.[employer]/home/Covid-19/HCP/QuestLDTP/ fact-sheet https://www.[employer]/home/Covid-19/Patients/QuestLDTP/ fact-sheet.html This test has been authorized by the FDA under an Emergency Use Authorization (EUA) for use by authorized laboratories. Due to the current public health emergency, [facility] is receiving a high volume of samples from a wide variety of swabs and media for COVID-19 testing. In order to serve patients during this public health crisis, samples from appropriate clinical sources are being tested. Negative test results derived from specimens received in non-commercially manufactured viral collection and transport media, or in media and sample collection kits not yet authorized by FDA for COVID-19 testing should be cautiously evaluated and the patient potentially subjected to extra precautions such as additional clinical monitoring, including collection of an additional specimen. Methodology: ??Nucleic Acid Amplification Test (NAAT) includes RT-PCR or TMA ?? Additional information about COVID-19 can be found at the [facility] website: www.[employer]/Covid19. Microbiology Nasopharyngeal swab / Unknown 10/18/2020 5:44 PM EST 10/18/2020 5:44 PM EST Narrative [facility] - 10/22/2020 5:00 PM EST Performing Organization Information: ?Site ID: [id number] ?Name: [employer] ?Address: [address] [place] [address],[place] [address] ?Director: GHASSAN GARCIA MD [facility] License number [id number] Atilio Mascorro PA-C BODY FLUIDS AND S TOOLS ORDERABLES Performing Organization Address City/State/[facility] Co de Phone Number [facility] documented in this encounter Visit Diagnoses Diagnosis Encounter for laboratory testing for COVID-19 virus documented in this encounter
== END 2025-01-29 09:31 | disposition home or self-care (01) ==
PROVIDERS: PCP Internal Medicine; Visit Provider Internal Medicine Pulmonary Disease
DX: J45.50 Severe persistent asthma, uncomplicated (principal); Z91.09 Other allergy status, other than to drugs and biological substances; G47.33 Obstructive sleep apnea (adult) (pediatric)
CPT/HCPCS: 99214; G2211

== ENCOUNTER → 2025-01-29 09:06 | Outpatient (BNVA) | payer MEDICARE, SELFPAY | PROVIDERS: PCP Internal Medicine; Visit Provider Internal Medicine Pulmonary Disease | DX: G47.33 Obstructive sleep apnea (adult) (pediatric) (principal); J45.50 Severe persistent asthma, uncomplicated; Z91.09 Other allergy status, other than to drugs and biological substances; Z99.89 Dependence on other enabling machines and devices | CPT/HCPCS: 99212 ==

== ENCOUNTER 2025-06-28 15:20 | Outpatient (AMB) | payer MEDICARE, SELFPAY ==
--- NOTE | 2025-06-28 15:14 | A.OFFVIS_ITS ---
Vital Signs 06/28/25 15:24 Height 5 ft 10 in Weight 314 lb BMI 45.0 BP 109/58 L Blood Pressure Location Rt brachial Position Sitting Respiration 16 Pulse 67 Pulse Source Pulse Oximeter Pulse Oximetry (%) 98 Oxygen Delivery Method Room Air Intake Visit Reasons: Dry cough Youth Support Worker Required: No Allergies cholecalciferol (vitamin D3) Allergy (Unknown, Verified 06/28/25 15:27) Unknown HPI HPI Dry cough: Details: Shaun is a pleasant 70-year-old male, nonsmoker, with underlying asthma, TONI on CPAP, HTN, CKD and hyperlipidemia. At baseline he is moderately controlled on Fasenra, Symbicort, Singulair, albuterol MDI. He does note only using Symbicort QD and has not used albuterol MDI/neb. He is followed by Dr. Alvares and presents today for an acute visit, accompanied by his . He reports poorly controlled asthma over the last two months with more noticeable dyspnea on exertion as well as dry cough. He was treated about one month ago with azithromycin and prednisone for possible sinus infection and noted slight decrease in dyspnea and cough with use of prednisone. Denies chest congestion, fevers or chills. He is under the care of cardiology, last evaluated 10/2024 with last echo 2021, previously on lasix and has discontinued quite some time ago. He denies orthopnea however does report BLE edema. [facility] Social History Patient Tobacco Use Status: Never used Tobacco Review of Systems Const Denies chills, Denies excessive sweating, Denies fever(s), Denies headache(s) and Denies night sweats Eyes Denies dry eyes, Denies irritation and Denies itchy eyes ENT Reports Normal hearing present, Denies headache(s), Denies nasal congestion, Denies nasal discharge, Reports post nasal drip and Denies sore throat Card Denies chest pain, Denies chest pain at rest, Denies chest pain with activity, Denies claudication, Denies dyspnea, Reports dyspnea on exertion, Denies orthopnea and Denies paroxysmal nocturnal dyspnea Resp Denies chest congestion, Reports cough, Denies hemoptysis, Denies excessive phlegm production, Denies pain on inspiration, Denies pain with cough, Denies dyspnea, Reports dyspnea on exertion, Denies stridor and Reports wheezing Musc Denies myalgias Neuro Reports Normal hearing present and Denies headache(s) Endo Denies excessive sweating Torrey/Lymph Denies lymphadenopathy Aller/Immun Denies itchy eyes, Denies seasonal rhinorrhea and Reports wheezing Physical Exam Vital Signs: Last Vital Signs Pulse 67 06/28/25 15:24 Resp 16 06/28/25 15:24 BP 109/58 L 06/28/25 15:24 Pulse Ox 98 06/28/25 15:24 Oxygen Delivery Method Room Air 06/28/25 15:24 BMI result Body Mass Index 45.0 Const General: cooperative, healthy appearing, comfortable, no acute distress, well developed and alert Nutritional Appearance: obese Orientation/consciousness: patient oriented x3 Limitations: no limitations HEENT Head: Yes normal to inspection, Yes normocephalic and Yes atraumatic Ears: hearing grossly normal bilaterally and external ears normal Eyes General: appearance normal, both eyes and all related structures Eyelids: Yes eyelids normal Sclerae: sclerae normal EOM: EOMs intact bilaterally Neck Neck: Yes normal visual inspection and Yes no lymphadenopathy Lymphatic: no lymphadenopathy noted Chest Chest palpation & inspection: normal inspection of the chest Resp Other: diminished bases otherwise clear with good air movement Effort & Inspection: normal respiratory effort, able to speak in complete sentences, no audible wheezes, no cough, no stridor, not tachypneic, no tripod positioning and no use of accessory muscles Auscultation: diminished lung sounds Cardio Jugular venous distension: no JVD Rate: regular rate Rhythm: regular rhythm Skin Other: warm, dry General skin exam: no rashes or lesions noted Neuro General: patient oriented x3 Cranial nerves: Yes Normal hearing present Cognition (Neuro): normal cognition Gait exam (Neuro): Normal gait present Extrem Other: 1-2+ pitting BLE edema Psych Appearance: grossly normal and well kempt Speech and movement: Normal speech and movement present and Clear speech present Affect: normal affect Attitude: cooperative Thought process: Normal thought process present Thought content: Normal thought content present Insight: Good insight present (Psych) Judgement: Good judgement present (Psych) Assessment & Plan Assessment & Plan (1) Severe persistent asthma: Code(s): J45.50 - Severe persistent asthma, uncomplicated Category: Medical (2) Environmental allergies: Code(s): Z91.09 - Other allergy status, other than to drugs and biological substances Category: Medical Plan Shaun presents for an acute visit for worsening dyspnea and more persistent dry cough despite current regimen. Respiratory exam unremarkable. Patient questioning effectiveness of Fasenra however patient only uses Symbicort 160 mcg 2 inhalations in the AM, encouraged patient to use BID and use albuterol MDI/neb PRN. Will also send for CXR today. Encouraged patient to reach out to cardiology as there may be an underlying cardiac contribution, last echo 2021 with no significant findings however technically difficult study, notable BLE edema on exam today and patient previously on lasix. All questions were answered and patient is in agreement of plan. Will follow up for regularly scheduled appointment with Dr. Alvares in 6 weeks or sooner if needed. Orders: Orders XR chest 2V 06/28/25 R06.09 - Other forms of dyspnea Medications: New albuterol sulfate 2.5 mg (3 mL) inhalation Q4-6H PRN 180 mL 2RF shortness of breath or wheezing J45.909 - Unspecified asthma, uncomplicated Refilled Symbicort 160-4.5 mcg/actuation (budesonide-formoterol) 2 puffs PO BID 10.2 grams 6RF NS Ventolin HFA 90 mcg/actuation (albuterol sulfate) 2 puffs inhalation Q4-6H PRN 1 ea 6RF shortness of breath or wheezing 30 days NS Coding Level of Care Code Est Pt Level 4 (48331) Complex EM visit Add On G2211 Diagnoses Severe persistent asthma J45.50 Environmental allergies Z91.09
--- OUTSIDE RECORDS SUMMARY | 2025-06-28 15:22 | XMS_ITS | Encounter Summary ---
Author Organization [facility] Address [address] [place] [address] Care Team Providers Care Briquetter Operator Name Role Phone Unavailable Primary Care Provider Unavailabl e Encounter Details Date Type Department Care Team (Latest Contact Info) Description 11/15/2020 Lab Requisition [facility] COVID Drive Through [address] [place] [address] [address] [place] [address] Atilio Mascorro PA-C [address] [place] [address] [phone] Encounter for laboratory testing for COVID-19 virus Social History Tobacco Use Types Packs/Day Years Used Date Smoking Tobacco: Never Assessed Sex and Gender Information Value Date Recorded Sex Assigned at Not on file Legal Sex Male 5:42 PM EST Gender Identity Not on file Sexual Orientation Not on file documented as of this encounter Plan of Treatment Not on file documented as of this encounter Procedures Procedure Name Priority Date/Time Associated Diagnosis Comments COVID-19 (SARS-COV-2) - [facility] Routine 11/15/2020 5:44 PM EST Encounter for laboratory testing for COVID-19 virus [ICD-10-CM] documented in this encounter Results * COVID-19 (SARS-COV-2) (SEMA4) (11/15/2020 5:44 PM EST) COVID-19 RT-PCR NOT-DETEC MARY Not-Detec mary 11/19/2020 3:41 PM EST [facility] [place] Comment:Interpretation: The viral RNA was not detected, making the COVID-19 diagnosis less likely. Clinical correlation is highly recommended.Final report signed by Omaira Ga, Ph.D., Laboratory DirectorTests performed at [facility] [employer] Microbiology Nasopharyngeal swab / Unknown 11/15/2020 5:44 PM EST 11/15/2020 5:44 PM EST Narrative [facility] - 11/19/2020 3:41 PM EST Performed by [facility] [employer] [address] [place] [address], CLIA# [id number] and [place] License# [id number] us Atilio Mascorro PA-C MICROBIOLOGY - GENERAL OR DERABLES Final Result [facility] documented in this encounter Visit Diagnoses Diagnosis Encounter for laboratory testing for COVID-19 virus documented in this encounter
--- OUTSIDE RECORDS SUMMARY | 2025-06-28 15:22 | XMS_ITS | Clinical Summary ---
Author Organization [facility] Address [address] [place] [address] Phone Care Team Providers Care Ironing Machine Operator Name Role Phone Atilio Ulloa MD Primary Care Provider [phone] Allergies Active Allergy Reactions Criticality Noted Date [...] Colorectal Cancer Screening: Sigmoidoscopy 2002 Pneumococcal Vaccine: 50+ Years (2 of 2 - PPSV23, PCV20, or PCV21) 12/02/2019 10/07/2019 Influenza Vaccine (#1) 2025 0, 10/07/2019, 09/22/2009 Hepatitis B Vaccine Aged Out No longe r eligible based on patient's age to complete this topic Insurance Medicare [facility] Care Teams Ironing Machine Operator Relationship Specialty Start Date End Date Atilio Ulloa MD [address] [place] PCP - General Internal Medicine 03/14/23
--- OUTSIDE RECORDS SUMMARY | 2025-06-28 15:22 | XMS_ITS | Clinical Summary ---
Author Organization [facility] [facility] it Address [address] [place] [address] Care Team Providers Care Detective Chief Name Role Phone Atilio Ulloa MD Primary Care Provider [phone] Medical History Medical History Date Comments Allergic [...] Vaccines (1 of 2) 2003 RSV Immunization Adult Patie nts (1 - Risk 60-74 years 1-dose series) 2013 Abdominal Aortic Aneurysm (A AA) Screen 06/23/2024 Cholesterol Screening (Lipid Panel) 06/23/2024 Colorectal Cancer Screening: Colonoscopy 06/23/2024 Falls Risk Assessment 06/23/2024 Hepatitis C Screening 06/23/2024 Social Influencers of Health Screening 06/23/2024 COVID-19 Vaccine (1 - 2023-2 5 season) 2024 Depression Screening 11/25/2024 Influenza Vaccine (#1) 2025 HIB Vaccines Aged Out No longer eligi [...] age to complete this topic Meningococcal B Vaccine Aged Out No l onger eligible based on patient's age to complete this topic RSV Immunization Patients Un jay jay 20 months Aged Out No longer eligible b ased on patient's age to complete this topic Varicella Vaccines Aged Out No longer eligible based on patient's age to complete this topic Care Teams Detective Chief Relationship Specialty Start Date End Date Atilio Ulloa MD [address] [place] [address] PCP - General Internal Medicine 07/23/18
[2025-06-28 15:24] VITALS: BP 109/58; PULSE 67; RESP 16; O2SAT 98; BMI 45.0
== END 2025-06-28 16:06 | disposition home or self-care (01) ==
LOC: HO.HPS 15:21
PROVIDERS: PCP Internal Medicine; Visit Provider Nurse Practitioner Family
DX: J45.50 Severe persistent asthma, uncomplicated (principal); Z91.09 Other allergy status, other than to drugs and biological substances
CPT/HCPCS: 99214; G2211

== ENCOUNTER 2025-06-28 15:20 | Outpatient (REF) | payer MEDICARE, SELFPAY ==
--- NOTE | ~2025-06-28 | XR_ITS ---
EXAMINATION: XR CHEST CLINICAL INFORMATION: R06.09 - Other forms of dyspnea COMPARISON: None available. TECHNIQUE: 2 views of the chest were obtained. FINDINGS: No significant abnormality is noted involving the heart, lungs, mediastinum, bony thorax or soft tissues. Aorta is mildly tortuous. XR/XR chest 2V IMPRESSION: No acute disease. Electronically signed by: Bravo Allred MD 06/28/2025 05:35 PM EDT
== END 2025-06-28 15:21 | disposition home or self-care (01) ==
LOC: HO.XRAY 15:20
PROVIDERS: PCP Student in an Organized Health Care Education/Training Program; Visit Provider Nurse Practitioner Family
DX: J45.50 Severe persistent asthma, uncomplicated (principal); R06.09 Other forms of dyspnea; R05.3 Chronic cough; R60.0 Localized edema; Z79.51 Long term (current) use of inhaled steroids; Z91.09 Other allergy status, other than to drugs and biological substances; Z79.620 Long term (current) use of immunosuppressive biologic
CPT/HCPCS: 71046; 99212

== ENCOUNTER → 2025-06-28 16:17 | Outpatient (BNV) | payer MEDICARE, SELFPAY | PROVIDERS: PCP Student in an Organized Health Care Education/Training Program; Visit Provider Radiology Diagnostic Radiology | DX: R06.02 Shortness of breath (principal) | CPT/HCPCS: 71046 ==

== ENCOUNTER 2025-07-21 10:04 | Outpatient (AMB) | payer MEDICARE, SELFPAY ==
[2025-07-21 10:07] VITALS: BP 128/64; PULSE 64; O2SAT 96; BMI 43.3
--- NOTE | 2025-07-21 10:07 | A.OFFVIS_ITS ---
Vital Signs 07/21/25 10:07 Height 5 ft 10 in Weight 302 lb BMI 43.3 BP 128/64 Blood Pressure Location Rt brachial Position Sitting Pulse 64 Pulse Source Pulse Oximeter Pulse Oximetry (%) 96 Oxygen Delivery Method Room Air Intake Visit Reasons: cough Allergies cholecalciferol (vitamin D3) Allergy (Unknown, Verified 07/21/25 10:11) Unknown HPI HPI cough: Details: 70-year-old gentleman, nonsmoker,followed for? moderate to severe persistent cough variant asthma, environmental allergies, and TONI on CPAP.??He continues on regimen of Fasenra, Symbicort, Singulair, albuterol MDI with reasonable baseline control.? He also continues to use CPAP to control his underlying sleep apnea. He had recent exacerbation treated with a course of prednisone and antibiotic, now at baseline. Patient does state that Fasenra is not lasting full 8 weeks and he has a tapering effect for the last several weeks before the next dose. He is intentionally losing weight, now down 12 lb since last visit. [facility] Social History Patient Tobacco Use Status: Never used Tobacco Review of Systems Const Denies daytime sleepiness, Denies excessive sweating, Denies fatigue, Denies fever(s), Denies lethargy, Denies malaise, Denies night sweats, Denies snoring and Denies weight loss Eyes Denies blurry vision and Denies itchy eyes ENT Denies nasal congestion, Denies post nasal drip, Denies sinus pain, Denies sinus pressure and Denies other ( Thrush) Card Denies chest pain, Denies pedal edema, Denies dyspnea, Denies orthopnea and Denies paroxysmal nocturnal dyspnea Resp Denies cough, Denies hemoptysis, Denies excessive phlegm production, Denies dyspnea, Denies snoring and Denies wheezing GI Denies abdominal pain and Denies heartburn Musc Denies myalgias, Denies arthralgias and Denies joint swelling Skin/Breast Denies rash Neuro Denies memory loss and Denies seizure-like activity Psych Denies abnormal sleep pattern, Denies anxiety and Denies memory loss Endo Denies excessive sweating, Denies fatigue and Denies heat intolerance Torrey/Lymph Denies easy bruising Aller/Immun Denies itchy eyes, Denies seasonal rhinorrhea and Denies wheezing Physical Exam Vital Signs: Last Vital Signs Pulse 64 07/21/25 10:07 BP 128/64 07/21/25 10:07 Pulse Ox 96 07/21/25 10:07 Oxygen Delivery Method Room Air 07/21/25 10:07 BMI result Body Mass Index 43.3 Const General: no acute distress and alert Nutritional Appearance: obese Orientation/consciousness: Other orientation findings ( oriented) HEENT Head: Yes atraumatic Eyes General: appearance normal, both eyes and all related structures Sclerae: sclerae normal EOM: EOMs intact bilaterally Neck Neck: Yes supple Lymphatic: no lymphadenopathy noted Resp Effort & Inspection: normal respiratory effort and no use of accessory muscles Auscultation: clear to auscultation bilaterally Cardio Rate: regular rate Rhythm: regular rhythm Heart sounds: no gallops, no murmurs and no rubs Skin General skin exam: other ( warm) Extrem General: No clubbing, No cyanosis and No edema Assessment & Plan Assessment & Plan (1) Severe persistent asthma: Code(s): J45.50 - Severe persistent asthma, uncomplicated Category: Medical Plan: Overall reasonable baseline control on Fasenra, Symbicort, and albuterol MDI/nebs. Continue current regimen. (2) TONI (obstructive sleep apnea): Code(s): G47.33 - Obstructive sleep apnea (adult) (pediatric) Category: Medical Plan: Controlled on current CPAP therapy. Continue CPAP therapy. (3) Environmental allergies: Code(s): Z91.09 - Other allergy status, other than to drugs and biological substances Category: Medical Plan: Controlled on current regimen of Fasenra and Singulair. Continue current regimen. Coding Level of Care Code Est Pt Level 4 (22067) Complex EM visit Add On G2211 Diagnoses Severe persistent asthma J45.50 TONI (obstructive sleep apnea) G47.33 Environmental allergies Z91.09
--- OUTSIDE RECORDS SUMMARY | 2025-07-21 10:52 | XMS_ITS | Encounter Summary ---
Author Organization [facility] Address [address] [place] [address] Care Team Providers Care Scuba Dive Training Instructor Name Role Phone Unavailable Primary Care Provider Unavailabl e Encounter Details Date Type Department Care Team (Latest Contact Info) Description 10/18/2020 Lab Requisition [facility] COVID Drive Through [address] [place] [address] [address] [place] [address] Atilio Mascorro PA-C [address] [place] [address] [phone] Encounter for laboratory testing for COVID-19 virus [...] RNA (COVID-19), Qual (10/18/2020 5:44 PM EST) SARS CoV 2 RNA, Qual NOT DETECTED NOT DETECTED 10/22/2020 5:[address] [facility] Comment: A Not Detected (negative) test [...] diagnosis and patient management decisions. REFERENCE RANGE: NOT DETECTED This patient specimen was tested using an FDA EUA pooling method. Negative results from pooled testing should not be treated as definitive. If the patient's clinical signs and symptoms are [...] providers and patients using the following websites: https://www.[employer].com[employer]/home/Covid-19/HCP/QuestLDTP/ fact-sheet https://www.[employer]/home/Covid-19/Patients/QuestLDTP/ fact-sheet.html This test has been authorized by the FDA under an Emergency Use Authorization (EUA) for use by authorized laboratories. Due to the current public health emergency, [facility] is receiving a high volume of samples [...] including collection of an additional specimen. Methodology: Nucleic Acid Amplification Test (NAAT) includes RT-PCR or TMA Additional information about COVID-19 can be found at the [employer] website: www.[employer]/Covid19. Microbiology Nasopharyngeal swab / Unknown 10/18/2020 5:44 PM EST 10/18/2020 5:44 PM EST [facility] - 10/22/2020 5:00 PM EST Performing Organization Information: Site ID: [id number] Name: [employer] Address: [address] [place] [address],[place] [address] Director: GHASSAN GARCIA MD [facility] at [facility] License number [id number] us Atilio Mascorro PA-C BODY FLUIDS AND STOOLS OR DERABLES Final Result [facility] documented in this encounter Visit Diagnoses Diagnosis Encounter for laboratory testing for COVID-19 virus documented in this encounter
--- OUTSIDE RECORDS SUMMARY | 2025-07-21 10:52 | XMS_ITS | Clinical Summary ---
Author Organization [facility] Address [address] [place] [address] Care Team Providers Care Biology Lecturer Name Role Phone Unavailable Primary Care Provider [...]
--- OUTSIDE RECORDS SUMMARY | 2025-07-21 10:52 | XMS_ITS | Clinical Summary ---
Author Organization [facility] it Address [address] [place] [address] Care Team Providers Care Occupational Physician Name Role Phone Atilio Ulloa MD Primary Care Provider [phone] Medical History Medical History Date Comments Allergic [...] age to complete this topic Care Teams Occupational Physician Relationship Specialty Start Date End Date Atilio Ulloa MD [address] [place] [id number] PCP - General Internal Medicine 07/23/18
--- OUTSIDE RECORDS SUMMARY | 2025-07-21 10:52 | XMS_ITS | Encounter Summary ---
Author Organization [facility] Address [address] [place] [id number] Care Team Providers Care Auditor Internal Name Role Phone Unavailable Primary Care Provider Unavailabl e Encounter Details Date Type Department Care Team (Latest Contact Info) Description 11/15/2020 Lab Requisition [facility] [address] [place] [address] [address] [place] [address] Atilio Mascorro PA-C [address] [place] [id number] Encounter for laboratory testing for COVID-19 virus [...] Associated Diagnosis Comments COVID-19 (SARS-COV-2) - [facility] Routine 11/15/2020 5:44 PM EST Encounter for laboratory testing for COVID-19 virus [ICD-10-CM] documented in this encounter Results * COVID-19 (SARS-COV-2) (SEMA4) (11/15/2020 5:44 PM EST) COVID-19 RT-PCR NOT-DETEC MARY Not-Detec mary 11/19/2020 3:[address] [facility] [place] Comment:Interpretation: The viral RNA was not detected, making the COVID-19 diagnosis less likely. Clinical correlation is highly recommended.Final report signed by Omaira Ga, Ph.D., Laboratory DirectorTests performed at [facility] Micro[facility] Nasopharyngeal swab / Unknown 11/15/2020 5:44 PM EST 11/15/2020 5:44 PM EST Narrative JACQUELINE GILMAN - 11/19/2020 3:41 PM EST Performed by [facility] [address] [place] [address], CLIA# [id number] and [place] License# [id number] us Atilio Mascorro PA-C MICROBIOLOGY - GENERAL OR DERABLES Final Result JACQUELINE GILMAN documented in this encounter Visit Diagnoses Diagnosis Encounter for laboratory testing for COVID-19 virus documented in this encounter
--- OUTSIDE RECORDS SUMMARY | 2025-07-21 10:53 | XMS_ITS | Clinical Summary ---
Author Organization [facility] Address [address] [place] [address] Phone Care Team Providers Care Pulp Mill Operator Name Role Phone Atilio Ulloa MD Primary Care Provider Allergies Active Allergy Reactions Criticality Noted Date [...] age to complete this topic Insurance Medicare [facility] Medicare [facility] Care Teams Pulp Mill Operator Relationship Specialty Start Date End Date Atilio Ulloa MD [address] [place] PCP - General Internal Medicine 03/14/23
--- OUTSIDE RECORDS SUMMARY | 2025-07-21 10:53 | XMS_ITS | Encounter Summary ---
Author Organization [facility] Address [address] [place] [id number] Care Team Providers Care Speed Belt Sander Name Role Phone Unavailable Primary Care Provider Unavailabl e Encounter Details Date Type Department Care Team (Latest Contact Info) Description 12/21/2020 Lab Requisition [facility] COVID [address] Through [address] [place] [address] [address] [place] [address] Erwin Sarmiento MD [address] [place] [address] Encounter for laboratory testing for [...] Date/Time Associated Diagnosis Comments COVID-19 (SARS-COV-2) - [facility] Routine 12/21/2020 2:54 PM EST Encounter for laboratory testing for COVID-19 virus [ICD-10-CM] documented in this encounter Results * COVID-19 (SARS-COV-2) (SEMA4) (12/21/2020 2:54 PM EST) COVID-19 RT-PCR NOT-DETEC MARY Not-Detec mary 12/22/2020 3:06 PM EST [facility] [place] Comment:Interpretation: The viral RNA was not detected, making the COVID-19 diagnosis less likely. Clinical correlation is highly recommended.Final report signed by Danis Pacheco, Ph.D., Laboratory DirectorTests performed at [facility] Nasopharyngeal swab / Unknown 12/21/2020 2:54 PM EST 12/21/2020 2:54 PM EST Narrative JACQUELINE GILMAN - 12/22/2020 3:06 PM EST Performed by [facility] [address] [place] [address], CLIA# [id number] and [place] License# [id number] us Erwin Sarmiento MD MICROBIOLOGY - GENERAL ORDER [place] Final Result JACQUELINE GILMAN documented in this encounter Visit Diagnoses Diagnosis Encounter for laboratory testing for COVID-19 virus documented in this encounter
== END 2025-07-21 10:35 | disposition home or self-care (01) ==
LOC: HO.HPS 10:04
PROVIDERS: PCP Student in an Organized Health Care Education/Training Program; Visit Provider Internal Medicine Pulmonary Disease
DX: J45.50 Severe persistent asthma, uncomplicated (principal); G47.33 Obstructive sleep apnea (adult) (pediatric); Z91.09 Other allergy status, other than to drugs and biological substances
CPT/HCPCS: 99214; G2211

== ENCOUNTER → 2025-07-21 10:04 | Outpatient (BNVA) | payer MEDICARE, SELFPAY | PROVIDERS: PCP Student in an Organized Health Care Education/Training Program; Visit Provider Internal Medicine Pulmonary Disease | DX: J45.50 Severe persistent asthma, uncomplicated (principal); G47.33 Obstructive sleep apnea (adult) (pediatric); Z91.09 Other allergy status, other than to drugs and biological substances | CPT/HCPCS: 99212 ==

== ENCOUNTER 2025-11-05 10:45 | Outpatient (AMB) | payer MEDICARE, SELFPAY ==
[2025-11-05 10:49] VITALS: BP 118/62; O2SAT 97; BMI 41.9
--- NOTE | 2025-11-05 10:49 | MHC.OFFVIS ---
Vital Signs 11/05/25 10:49 Height 5 ft 10 in Weight 292 lb BMI 41.9 BP 118/62 Blood Pressure Location Rt brachial Position Sitting Pulse Oximetry (%) 97 Oxygen Delivery Method Room Air Intake Visit Reasons: Cough Allergies cholecalciferol (vitamin D3) Allergy (Unknown, Verified 11/05/25 10:53) Unknown HPI HPI Cough: Details: 70-year-old gentleman, nonsmoker,followed for? moderate to severe persistent cough variant asthma, environmental allergies, and TONI on CPAP.??He continues on regimen of Fasenra, Symbicort, Singulair, albuterol MDI with reasonable baseline control.? He also continues to use CPAP to control his underlying sleep apnea. He denies recent exacerbations. Patient does state that Fasenra is not lasting full 8 weeks and he has a tapering effect for the last several weeks before the next dose. He is intentionally losing weight, now down additional 8 lb since last visit. [facility] Social History Patient Tobacco Use Status: Never used Tobacco Review of Systems Const Denies daytime sleepiness, Denies excessive sweating, Denies fatigue, Denies fever(s), Denies lethargy, Denies malaise, Denies night sweats, Denies snoring and Denies weight loss Eyes Denies blurry vision and Denies itchy eyes ENT Denies nasal congestion, Denies post nasal drip, Denies sinus pain, Denies sinus pressure and Denies other ( Thrush) Card Denies chest pain, Denies pedal edema, Denies dyspnea, Denies orthopnea and Denies paroxysmal nocturnal dyspnea Resp Denies cough, Denies hemoptysis, Denies excessive phlegm production, Denies dyspnea, Denies snoring and Denies wheezing GI Denies abdominal pain and Denies heartburn Musc Denies myalgias, Denies arthralgias and Denies joint swelling Skin/Breast Denies rash Neuro Denies memory loss and Denies seizure-like activity Psych Denies abnormal sleep pattern, Denies anxiety and Denies memory loss Endo Denies excessive sweating, Denies fatigue and Denies heat intolerance Torrey/Lymph Denies easy bruising Aller/Immun Denies itchy eyes, Denies seasonal rhinorrhea and Denies wheezing Physical Exam Vital Signs: Last Vital Signs BP 118/62 11/05/25 10:49 Pulse Ox 97 11/05/25 10:49 Oxygen Delivery Method Room Air 11/05/25 10:49 BMI result Body Mass Index 41.9 Const General: no acute distress and alert Nutritional Appearance: obese Orientation/consciousness: Other orientation findings ( oriented) HEENT Head: Yes atraumatic Eyes General: appearance normal, both eyes and all related structures Sclerae: sclerae normal EOM: EOMs intact bilaterally Neck Neck: Yes supple Lymphatic: no lymphadenopathy noted Resp Effort & Inspection: normal respiratory effort and no use of accessory muscles Auscultation: clear to auscultation bilaterally Cardio Rate: regular rate Rhythm: regular rhythm Heart sounds: no gallops, no murmurs and no rubs Skin General skin exam: other ( warm) Extrem General: No clubbing, No cyanosis and No edema Assessment & Plan Assessment & Plan (1) Severe persistent asthma: Code(s): J45.50 - Severe persistent asthma, uncomplicated Category: Medical Plan: Well controlled on current regimen of Fasenra, Symbicort, albuterol MDI/nebs. Continue current regimen. (2) TONI (obstructive sleep apnea): Code(s): G47.33 - Obstructive sleep apnea (adult) (pediatric) Category: Medical Plan: Controlled on current CPAP therapy. Continue CPAP therapy. (3) Environmental allergies: Code(s): Z91.09 - Other allergy status, other than to drugs and biological substances Category: Medical Plan: Well controlled on Fasenra. Continue current regimen. Coding Level of Care Code Est Pt Level 4 (25972) Add On Problem Visit Only Diagnoses Severe persistent asthma J45.50 TONI (obstructive sleep apnea) G47.33 Environmental allergies Z91.09
== END 2025-11-05 11:15 | disposition home or self-care (01) ==
LOC: HO.HPS 10:46
PROVIDERS: PCP Student in an Organized Health Care Education/Training Program; Visit Provider Internal Medicine Pulmonary Disease
DX: J45.50 Severe persistent asthma, uncomplicated (principal); G47.33 Obstructive sleep apnea (adult) (pediatric); Z91.09 Other allergy status, other than to drugs and biological substances
CPT/HCPCS: 99214; G2211

== ENCOUNTER → 2025-11-05 10:45 | Outpatient (BNVA) | payer MEDICARE, SELFPAY | PROVIDERS: PCP Student in an Organized Health Care Education/Training Program; Visit Provider Internal Medicine Pulmonary Disease | DX: J45.50 Severe persistent asthma, uncomplicated (principal); G47.33 Obstructive sleep apnea (adult) (pediatric); Z91.09 Other allergy status, other than to drugs and biological substances; Z99.89 Dependence on other enabling machines and devices | CPT/HCPCS: 99212 ==